=== PATIENT | female | born 1980 | race Caucasian/White ===

== ENCOUNTER 2017-01-19 23:05 | Inpatient (IN) | payer BC ==
[2017-01-19] MEDS ORDERED: ELECTROLYTE-148 SOLN 500 ML IV ONE (23:45)
[2017-01-20] MEDS: ELECTROLYTE-148 SOLN 1,000 ML IV SCH ×2 (00:45→04:10)
[2017-01-20] MEDS ORDERED: TERBUTALINE SULFATE 1 MG/1 ML VIAL SQ ONE (01:30)
[2017-01-20 03:22] LABS: BASOPHIL 0.2 % (0-2.0); EOSINOPHIL 0.1 % (0-4.5); MCH 29.8 pg (25.7-33.7); MCHC 33.7 g/dl (32.0-36.0); MEAN CELL VOLUME 88.4 fl (80-96); NEUTROPHILS 85.4 % (42.8-82.8); PLATELET COUNT 205 K/MM3 (134-434)
[2017-01-20 03:36] LABS: INR 0.95 (0.82-1.09); PROTHROMBIN TIME (PATIENT) 10.4 SEC (9.98-11.88)
[2017-01-20 03:39] LABS: ACTIVATED PTT 21.8 SECONDS (26.9-34.4)
[2017-01-20 03:47] LABS: ANION GAP 13 (8-16); CALCIUM 8.4 mg/dL (8.5-10.1); CO2 20 mmol/L (21-32); CREATININE 0.7 mg/dL (0.55-1.02); GLUCOSE,RANDOM 101 mg/dL (74-106)
[2017-01-20 04:07] VITALS: BMI 29.9
[2017-01-20 04:09] LABS: HIV 1 & 2 AB NEGATIVE; HIV 1 AGp24 NEGATIVE
[2017-01-20] MEDS ORDERED: CLINDAMYCIN 900 MG PREMIX IVPB 50 ML IVPB ONE (04:15)
[2017-01-20] MEDS ORDERED: CITRIC ACID/SODIUM CITRATE 30 ML UNIT-DOSE CUP PO ONE (05:00)
--- NOTE | 2017-01-20 05:25 | HP ---
Past Medical History - Primary Care Physician PCP:: Neftali Cohn - Admission Chief Complaint: 36yo P2 @ 37.1 wks with painful contructions, not relieved with hydration, no vaginal bleeding, no LOF, + FM History of Present Illness: 1. Prior c/section x 2 2. Multiparty for BTL 3. AMA - Cell free DNA testing - negative for Chromosomal anomaly, XY 4. Amoxicillin allergy - Gent/Clinda for wound prophylaxes History Source: Patient Limitations to Obtaining History: No Limitations - Past Medical History ...: 4 ...Para: 2 ...Term: 2 ...: 0 ...Spon : 1 ...Induced : 0 ...LMP: 05/06/16 ... Weeks Gestation by Dates: 37 ...EDC by Dates: 02/10/17 ...EDC by Sono: 02/08/17 - Past Surgical History Past Surgical History: Yes: Appendectomy, (twice) Hx Myomectomy: No Hx Transabdominal Cerclage: No - Smoking History Smoking history: Never smoked Have you smoked in the past 12 months: No - Alcohol/Substance Use Hx Alcohol Use: No History of Substance Use: reports: None - Social History Usual Living Arrangement: Yes: With Spouse, With Significant Other, With Child Home Medications - Allergies Allergies/Adverse Reactions: Allergies Allergy/AdvReac Type Severity Reaction Status Date / Time amoxicillin Allergy Rash Verified 01/20/17 01:22 - Home Medications Home Medications: Ambulatory Orders Vit #76/Iron,Carb/FA [Pnv 29-1 Tablet] 1 tab PO DAILY 11/07/16 Physical Exam - Maternity Vital Signs: Vital Signs Temperature 98.1 F 01/20/17 03:15 Pulse Rate 95 H 01/20/17 03:15 Respiratory Rate 18 01/20/17 03:15 Blood Pressure 116/56 01/20/17 03:15 O2 Sat by Pulse Oximetry (%) Constitutional: Yes: Well Nourished Eyes: Yes: WNL HENT: Yes: WNL Neck: Yes: WNL Cardiovascular: Yes: WNL Lungs: Clear to auscultation Breast(s): Yes: WNL - Abdominal Exam/OB Fundal Height: 37 Number of Fetuses: Single Presentation: Vertex Contractions: Yes Regularity: Regular (Q 3minutes) Intensity: Mild/Mod Monitor Mode: External Heart Rate (range): 150 Heart Rate Location: Midline Category: I Accelerations: Uniform Decelerations: None - Vaginal Exam/OB Vaginal Bleediing: No Speculum Exam: No Dilatation (cm): closed Effacement (%): long Amniotic Membrane Status: Intact Presentation: Vertex/Position Station: -3 - Physical Exam Musculoskeletal: Yes: WNL Extremities: Yes: WNL Edema: No ...Motor Strength: WNL Psychiatric: Yes: WNL - Labs Lab Results: CBC, BMP 01/20/17 03:00 01/20/17 03:00 Assessment/Plan 36yo P2 with regular non remitting contractions history of two prior c/section admit for repeat c/s and BTL IVF/Labs/NPO Gentamycin and Clindamycin for incision infection prophylaxis
[2017-01-20] MEDS ORDERED: ONDANSETRON 4 MG/2 ML VIAL IVPB PRN (05:45)
--- NOTE | 2017-01-20 06:36 | PN ---
Progress Note (short form) - Note Progress Note: Attended Rpt. C/s in labor at the request of OB Mom 36yrs old - [facility]: 02/10,/02/08 PNL- nl, except for GBS- unknown, no ROM, Mom received 1 dose of Clindamycin Infant cried soon after suctioned/ dried Cord 3V, 9/9 PE: infant alert active, no in distress Normocephalic, AFOF, No Cleft B/L good air entry, No Heart Murmur, B/L good air entry - nl male, B/L Testis Descended FROM, Good tone and activity Imp: Early Term male C/S for Previous C/S in Labor Plan: Watch for Resp distress Encourage B/F bonding
--- NOTE | 2017-01-20 07:14 | OP ---
Operative Note - Note: Operative Date: 01/20/17 Pre-Operative Diagnosis: 36yo P2 @ 37.1wks prior c/section in labor Operation: Repeat LST c/section and bilateral tubal ligation Findings: Viable Male, APGARs 9/9 Normal size placenta Normal tubes and ovaries Post-Operative Diagnosis: Same as Pre-op Surgeon: Alyssa Beckham Demo Coordinator: Sulaiman Marti Anesthesiologist/OUTSIDE INDUSTRIAL SALES REPRESENTATIVE: Neela Roberts Anesthesia: Spinal Specimens Removed: 1. Bilateral fallopian tubes. 2. Male infant APGARs 9/9, [id number]. 3. Full term placenta Estimated Blood Loss (mls): 500 Drains, Volume Out (mls): 225 Fluid Volume Replaced (mls): 2,000 Operative Report Dictated: Yes
[2017-01-20] MEDS ORDERED: diphenhydrAMINE HCL 25 MG CAPSULE (FP) PO PRN (07:29)
[2017-01-20] MEDS ORDERED: BENZOCAINE 20% 57 GM BOTTLE TP PRN (07:29)
[2017-01-20] MEDS ORDERED: oxyCODONE HCL 5 MG TABLET PO PRN ×2 (07:29)
[2017-01-20] MEDS ORDERED: WITCH HAZEL 50% (TUCKS) 40 PAD/JAR PAD TP PRN (07:29)
[2017-01-20] MEDS ORDERED: METHYLERGONOVINE MALEATE 0.2 MG/1 ML AMP IM PRN (07:29)
[2017-01-20] MEDS ORDERED: BENZOCAINE 28 GM HEMORRHOIDAL OINTMENT PR PRN (07:29)
[2017-01-20] MEDS ORDERED: IBUPROFEN 800 MG/8 ML IJ IVPB PRN (07:29)
[2017-01-20] MEDS ORDERED: DEXTROSE 5%-LACTATED RINGERS 1,000 ML IV SCH (07:30)
--- NOTE | 2017-01-20 07:33 | PN ---
Delivery - Delivery Section: Repeat, Low Flap Transverse Type of Anesthesia: Spinal Episiotomy/Laceration: None EBL (cc): 500 Delivery, Single - Stages of Labor Date 1st Stage Initiatied: 01/19/17 Time 1st Stage Initiated: 21:30 Date of Delivery: 01/20/17 Time of Delivery: 06:21 Time Placenta Delivered: 06:22 Placenta: Yes: Expressed - Condition of Mock Up Maker/Color Laboratory Technician Present: Yes Name: Isrrael Dale Gender: Male Weight: 7 lb 12 oz Position: Right, OT Total Hours ROM (Hrs/Mins): 2mins - 1 Minute Total Score: 9 5 Minutes Total Score: 9 - Feeding Plan Initial Plan: Elected not to breastfeed exclusively throughout hospitalization
[2017-01-20] MEDS: OXYTOCIN 20 UNITS in 0.9% NS 1,000 ML IV SCH ×2 (07:45→16:45)
--- NOTE | 2017-01-20 09:40 | OP ---
DATE OF OPERATION: 01/20/2017 PREOPERATIVE DIAGNOSES: 1. A 36-year-old para 2 at 37.1 weeks with prior 2 sections, in labor. 2. Multiparity. OPERATION: Repeat lower segment transverse section and bilateral tubal ligation. POSTOPERATIVE DIAGNOSES: 1. A 36-year-old para 2 at 37.1 weeks with prior 2 sections, in labor. 2. Multiparity. PROCEDURE: Repeat section. FINDINGS: Viable male, Apgars 9 and 9. Normal-sized placenta and normal bilateral tubes and ovaries. SURGEON: Alyssa Beckham MD BALL SHAGGER: Sulaiman Mrati MD ANESTHESIOLOGIST: Neela Roberts DO ANESTHESIA: Spinal. SPECIMENS REMOVED: Bilateral fallopian tubes. Male infant, 7 pounds 12 ounces, and full-term placenta. DESCRIPTION OF THE OPERATIVE PROCEDURE: After assuring informed consent, patient was brought to the operating room where she was placed in dorsal supine position with left lateral tilt. Pfannenstiel skin incision was made with a scalpel, carried down to the level of fascia with the Bovie cautery. Fascia dissected bilaterally with Bovie cautery and dissected off the rectus abdominis muscle with Bovie cautery. The peritoneum was identified immediately since muscle was already at the midline. Peritoneum was entered bluntly and dissected bilaterally with the Bovie. Bladder retracted at the lower edge of the bowel. Vesicouterine peritoneum identified and dissected bilaterally and retracted at the lower edge of the bowel. Lower uterine segment incision was made with scalpel and dissected bilaterally with bandage scissors. Infant's head was identified in left occiput transverse position and delivered without difficulty. Male infant with Apgars 9 and 9, weight 7 pounds 12 ounces. Cord clamp and handed. The infant handed to state federal relations deputy director. Placenta expressed without difficulty and sent to Pathology. Uterus cleared of clots and debris. The cervix opened with the ring forceps. Uterus repaired with 0 Biosyn in running locking fashion and then imbricating layer was created with 0 Biosyn. The excellent hemostasis was noted and bilateral tubes were grasped with the Lillian x2 and dissected off the clamp with the Bovie cautery, 2/3 of each tube on each side and tied with 2-0 plain suture x2. Excellent hemostasis was noted. Peritoneum was closed with 0 Biosyn. The muscle was reapproximated at the midline with 0 Biosyn. Fascia was closed with 0 chromic in 1 long uninterrupted suture. Subcutaneous space was closed with 2-0 chromic and skin was closed with joe. Estimated blood loss 500 mL. Urine output 225 mL. Fluid volume was 2000 mL. Patient tolerated procedure well. Instrument and sponge count was correct x2. Patient was brought to the recovery room in stable condition. Angelina [id number]
[2017-01-20] MEDS ORDERED: CLINDAMYCIN 600MG PREMIX IVPB 50 ML IVPB SCH (10:15)
[2017-01-20] MEDS: CLINDAMYCIN 600MG PREMIX IVPB 50 ML IVPB SCH ×2 (16:15→21:45)
[2017-01-21] MEDS: IBUPROFEN 600 MG TABLET (FP) PO PRN ×3 (00:18→15:11)
[2017-01-21] MEDS: SIMETHICONE 80 MG TAB.CHEW (FP) PO PRN ×3 (00:18→15:13)
[2017-01-21] MEDS: CLINDAMYCIN 600MG PREMIX IVPB 50 ML IVPB SCH (03:25)
[2017-01-21] MEDS ORDERED: BISACODYL 10 MG SUPP.RECT RC PRN (07:30)
[2017-01-21 07:44] LABS: BASOPHIL 0.4 % (0-2.0); MCH 29.3 pg (25.7-33.7); MCHC 33.1 g/dl (32.0-36.0); MEAN CELL VOLUME 88.7 fl (80-96); NEUTROPHILS 72.6 % (42.8-82.8); PLATELET COUNT 205 K/MM3 (134-434); RDW 14.8 % (11.6-15.6); WHITE BLOOD COUNT 11.3 K/mm3 (4.0-10.0)
--- NOTE | 2017-01-21 09:00 | PN ---
Post Progress Note - Subjective Subjective: No complaints, doing well, ambulating. Pain controlled. Post Day: 1 Type of Delivery: Repeat C/S Vital Signs: Vital Signs Temperature 97.9 F 01/21/17 07:40 Pulse Rate 76 01/21/17 07:40 Respiratory Rate 20 01/21/17 07:40 Blood Pressure 102/68 01/21/17 07:40 O2 Sat by Pulse Oximetry (%) Breast Exam: Yes: Soft Uterus: Yes: Fundus Firm, Fundus below umbilicus, Non-tender Incision: Yes: Dressing dry and intact Abdomen/GI: Yes: Abdomen soft, Tolerating PO Lochia: Yes: Rubra Lochia, amount: Small Extremities: Yes: Calves non-tender, Edema (trace) Perineum: Yes: Intact Activity: Ambulating - Labs Labs: CBC WBC 11.3 K/mm3 (4.0-10.0) H 01/21/17 06:20 RBC 4.06 M/mm3 (3.60-5.2) 01/21/17 06:20 Hgb 11.9 GM/dL (10.7-15.3) 01/21/17 06:20 Hct 36.0 % (32.4-45.2) 01/21/17 06:20 MCV 88.7 fl (80-96) 01/21/17 06:20 MCH 29.3 pg (25.7-33.7) 01/21/17 06:20 MCHC 33.1 g/dl (32.0-36.0) 01/21/17 06:20 RDW 14.8 % (11.6-15.6) 01/21/17 06:20 Plt Count 205 K/MM3 (134-434) 01/21/17 06:20 MPV 9.0 fl (7.5-11.1) 01/21/17 06:20 Neutrophils % 72.6 % (42.8-82.8) 01/21/17 06:20 Lymphocytes % 20.9 % (8-40) D 01/21/17 06:20 Monocytes % 5.1 % (3.8-10.2) 01/21/17 06:20 Eosinophils % 1.0 % (0-4.5) D 01/21/17 06:20 Basophils % 0.4 % (0-2.0) 01/21/17 06:20 Assessment/Plan 26yo P3 s/p repeat LT C/S, doing well stable, afebrile. care instructions reviewed. Continue routine postop care. Ambulation encouraged.
--- NOTE | 2017-01-21 10:48 | PN ---
Progress Note (short form) - Note Progress Note: Anesthesia postop note 36 y/o F s/p spinal anesthesia/ duramorph for section POD#1, vss, aaox3, sensory motor intact distally, pain well controlled No anesthesia complications.
[2017-01-21] MEDS: ACETAMINOPHEN 325 MG TABLET (FP) PO PRN (15:12)
[2017-01-22] MEDS: IBUPROFEN 600 MG TABLET (FP) PO PRN ×3 (03:05→21:23)
[2017-01-22] MEDS: SIMETHICONE 80 MG TAB.CHEW (FP) PO PRN ×2 (03:05→21:26)
[2017-01-22] MEDS: ACETAMINOPHEN 325 MG TABLET (FP) PO PRN ×3 (03:05→21:22)
--- NOTE | 2017-01-22 07:55 | PN ---
Post Progress Note - Subjective Subjective: Patient without acute complaints. Reports tolerating oral intake without nausea or vomiting. Ambulating without dizziness. Denies fevers or chills. Pain well controlled with oral pain medication. without difficulty. Passing flatus. Post Day: 2 Type of Delivery: Repeat C/S Vital Signs: Vital Signs Temperature 98.0 F 01/21/17 21:38 Pulse Rate 64 01/21/17 21:38 Respiratory Rate 20 01/21/17 21:38 Blood Pressure 118/72 01/21/17 21:38 O2 Sat by Pulse Oximetry (%) Uterus: Yes: Fundus Firm, Fundus below umbilicus Incision: Yes: Sutures intact. No: Redness, Oozing Abdomen/GI: Yes: Abdomen soft, Tender (incisional), Passing flatus, Tolerating PO. No: Abdominal Distention Lochia: Yes: Serosa Lochia, amount: Small Extremities: Yes: Calves non-tender, Edema (+1) Activity: Ambulating - Labs Labs: CBC WBC 11.3 K/mm3 (4.0-10.0) H 01/21/17 06:20 RBC 4.06 M/mm3 (3.60-5.2) 01/21/17 06:20 Hgb 11.9 GM/dL (10.7-15.3) 01/21/17 06:20 Hct 36.0 % (32.4-45.2) 01/21/17 06:20 MCV 88.7 fl (80-96) 01/21/17 06:20 MCH 29.3 pg (25.7-33.7) 01/21/17 06:20 MCHC 33.1 g/dl (32.0-36.0) 01/21/17 06:20 RDW 14.8 % (11.6-15.6) 01/21/17 06:20 Plt Count 205 K/MM3 (134-434) 01/21/17 06:20 MPV 9.0 fl (7.5-11.1) 01/21/17 06:20 Neutrophils % 72.6 % (42.8-82.8) 01/21/17 06:20 Lymphocytes % 20.9 % (8-40) D 01/21/17 06:20 Monocytes % 5.1 % (3.8-10.2) 01/21/17 06:20 Eosinophils % 1.0 % (0-4.5) D 01/21/17 06:20 Basophils % 0.4 % (0-2.0) 01/21/17 06:20 Assessment/Plan 36 yo POD # 2 s/p repeat CD, afebrile, vital signs stable, doing well 1. Continue routine postoperative care. 2. Encourage ambulation and incentive spirometer use 3. Continue oral pain medication 4. Anticipate discharge home postoperative day #3 or #4
--- NOTE | 2017-01-22 09:42 | DS ---
Physical Exam-WEARING APPAREL PRESSER Vital Signs: Vital Signs Temperature 98.2 F 01/22/17 08:03 Pulse Rate 62 01/22/17 08:03 Respiratory Rate 20 01/22/17 08:03 Blood Pressure 128/72 01/22/17 08:03 O2 Sat by Pulse Oximetry (%) Labs: CBC, BMP 01/21/17 06:20 01/20/17 03:00 Delivery - Delivery Section: Repeat, Low Flap Transverse Type of Anesthesia: Spinal Episiotomy/Laceration: None EBL (cc): 500 Delivery, Single - Stages of Labor Date 1st Stage Initiatied: 01/19/17 Time 1st Stage Initiated: 21:30 Date of Delivery: 01/20/17 Time of Delivery: 06:21 Time Placenta Delivered: 06:22 Placenta: Yes: Expressed - Condition of Infant Criminology Professor/Automotive Repair Technician Present: Yes Name: Isrrael Dale Gender: Male Weight: 7 lb 12 oz Position: Right, OT Total Hours ROM (Hrs/Mins): 2mins - 1 Minute Total Score: 9 5 Minutes Total Score: 9 - [place] Feeding Plan Initial Plan: Elected not to breastfeed exclusively throughout hospitalization Discharge Summary Reason For Visit: ADMIT Procedures: Principal: repeat delivery Hospital Course: patient remained afebrile, vital signs stable after CD Noted to have UTI, started on macrobid POD#3 Stable for discharge home POD #3 Condition: Good - Instructions Diet, Activity, Other Instructions: regular diet, follow up office one week weeks,continue antibiotics Referrals: Alyssa Beckham MD [Family Provider] - Disposition: HOME - Home Medications Comprehensive Discharge Medication List: Ambulatory Orders Vit #76/Iron,Carb/FA [Pnv 29-1 Tablet] 1 tab PO DAILY 11/07/16
[2017-01-22] MEDS: NITROFURANTOIN MACROCRYSTAL 50 MG CAPSULE (FP) PO SCH (21:43)
[2017-01-22] MEDS ORDERED: SENNOSIDES/DOCUSATE COMBO (SENNA PLUS) TABLET (UD) PO PRN (22:00)
[2017-01-23] MEDS: NITROFURANTOIN MACROCRYSTAL 50 MG CAPSULE (FP) PO SCH (06:05)
--- NOTE | 2017-01-23 07:33 | PN ---
Progress Note (short form) - Note Progress Note: pod 3 no c/o ,no dysuria urine culture 100.000 e coli CBC, BMP 01/21/17 06:20 01/20/17 03:00 Last Vital Signs Temp Pulse Resp BP Pulse Ox 98.1 F 75 20 133/73 01/22/17 22:00 01/22/17 22:00 01/22/17 22:00 01/22/17 22:00 abdomen soft, uterus firm, non tender , incision dry, clean lochia mild no calf tenderness impression uti, plan macrobid bid d/c home rto 1 weeks
[2017-01-23] MEDS: IBUPROFEN 600 MG TABLET (FP) PO PRN (08:35)
[2017-01-23] MEDS: ACETAMINOPHEN 325 MG TABLET (FP) PO PRN (08:36)
[2017-01-23] MEDS: SIMETHICONE 80 MG TAB.CHEW (FP) PO PRN (08:38)
[2017-01-23 08:50] LABS: BASOPHIL 0.4 % (0-2.0); EOSINOPHIL 1.7 % (0-4.5); MCH 29.6 pg (25.7-33.7); MCHC 33.3 g/dl (32.0-36.0); MEAN CELL VOLUME 88.8 fl (80-96); MEAN PLT VOLUME 8.1 fl (7.5-11.1); NEUTROPHILS 76.7 % (42.8-82.8); PLATELET COUNT 232 K/MM3 (134-434); RDW 14.9 % (11.6-15.6); WHITE BLOOD COUNT 7.7 K/mm3 (4.0-10.0)
[2017-01-23 12:06] VITALS: BP 124/67; PULSE 71; TEMP 98.8
--- NOTE | 2017-01-23 17:10 | PATH ---
Surgical Pathology Report Patient Name: HÉCTOR MALLOY [facility]. Rec. #: [id number] /Age/Gender: 1980 (Age: 36) / F Account: [id number] Location: [facility] OBS/MANAGER JAVA Taken: 01/20/2017 Received: 01/20/2017 Reported: 01/23/2017 Physicians: Alyssa Beckham M.D. Specimen(s) Received A: PLACENTA B: RIGHT FALLOPIAN TUBE C: LEFT FALLOPIAN TUBE Clinical History , 37.2 weeks, bleeding in first trimester, GBS unknown Previous x2 11/23/06 and 09/23/10 Appendectomy 2016 Final Diagnosis A. PLACENTA, DELIVERY: FOCALLY DISRUPTED THIRD TRIMESTER PLACENTA WITH THREE VESSEL UMBILICAL CORD AND UNREMARKABLE PLACENTAL MEMBRANES. B. RIGHT FALLOPIAN TUBE, SALPINGECTOMY: FULL LUMINAL PORTION OF UNREMARKABLE FALLOPIAN TUBE, INCLUDING FIMBRIATED END. C. LEFT FALLOPIAN TUBE, SALPINGECTOMY: FULL LUMINAL PORTION OF BENIGN FALLOPIAN TUBE, WITH FOCAL ENDOMETRIOSIS AT FIMBRIATED END. Electronically Signed Robert Lisa M.D. Gross Description A. The specimen is received fresh labeled placenta and is a 500 gram, 21.0 x 16.0 x 2.1 cm. placenta with attached membranes and umbilical cord. The attached membranes are spear, translucent and insert marginally. The umbilical cord measures 41 cm. in length and averages 1.0 cm. in diameter. The cord inserts eccentrically, 4.5 cm. to the nearest margin. No true knots or strictures are identified. Cut surface of the umbilical cord reveals 3 vessels. The surface is garner-blue with minimal fibrin deposition and appropriate caliber vessels. The maternal surface is red-brown with focal defects. Sectioning reveals red-brown, spongy parenchyma. No lesions are identified. Rib Stiffener And Heel Dipper sections are submitted in three cassettes as follows: 1- membrane rolls and umbilical cord; 2-3- full thickness sections of placenta. B. Received in formalin labeled "right fallopian tube," is a 3 cm in length fimbriated portion of fallopian tube. The outer surface is spear garner and smooth. Sectioning reveals an unremarkable lumen. Rib Stiffener And Heel Dipper sections are submitted in 2 cassettes as follows: 1-fimbria; 2-cross sections of fallopian tube. C. Received in formalin labeled "left fallopian tube," is a 2.5 cm in length fimbriated portion of fallopian tube. The outer surface is spear-estrella and smooth. Sectioning reveals an unremarkable lumen. Rib Stiffener And Heel Dipper sections are submitted in 2 cassettes as follows: 1-fimbria; 8-[id number] of fallopian tube. 01/22/201701/22/2017
== END 2017-01-23 11:10 | disposition home or self-care (01) | DRG 765 ==
LOC: JDEL 23:05 → JLDR 01-20 02:30 → J3W 01-20 08:10
PROVIDERS: ADMIT Obstetrics & Gynecology; ATTEND Obstetrics & Gynecology
PROC: 10D00Z1 Extraction of Products of Conception, Low, Open Approach (ICD-10-PCS; principal; 2017-01-20)
PROC: 0UL70ZZ Occlusion of Bilateral Fallopian Tubes, Open Approach (ICD-10-PCS; 2017-01-20)
DX: O34.211 Maternal care for low transverse scar from previous cesarean delivery (principal); O23.43 Unspecified infection of urinary tract in pregnancy, third trimester; B96.29 Other Escherichia coli [E. coli] as the cause of diseases classified elsewhere; O75.89 Other specified complications of labor and delivery; Z88.1 Allergy status to other antibiotic agents; Z3A.37 37 weeks gestation of pregnancy; Z37.0 Single live birth; Z30.2 Encounter for sterilization
CPT/HCPCS: 36415; 80048; 85025; 85610; 85730; 86593; 86850; 86900; 86901; 87086; 87186; 87389; 88302-TC; 88307-TC